=== PATIENT | female | born 1975 | race African-American/Black ===

== ENCOUNTER 2020-06-12 15:45 | Emergency (ER) | payer SELFPAY ==
[~2020-06-12] VITALS: Ht 175.3 cm; Wt 63.0 kg
[2020-06-12] MEDS ORDERED: KETOROLAC 30 MG/ML VIAL. IM ONE (19:00)
[2020-06-12] MEDS ORDERED: diazePAM 5 MG TABLET PO ONE (19:00)
[2020-06-12 19:08] LABS: BILIRUBIN,URINE NEGATIVE (NEG); CLARITY,URINE CLEAR; COLOR,URINE YELLOW; NITRITE,URINE NEGATIVE (NEG); PROTEIN,URINE NEGATIVE (NEG-TRACE)
[2020-06-12 19:17] LABS: BACTERIA,URINE FEW /HPF (0-FEW); RBC,URINE 0 /HPF (0-2)
[2020-06-12] MEDS ORDERED: CYCL10TA2 PO (20:04)
[2020-06-12] MEDS ORDERED: CEPH-264 PO (20:04)
[2020-06-12] MEDS ORDERED: NAPR-514 PO (20:04)
--- NOTE | 2020-06-12 20:04 | PHYS DOC ---
Past Medical History Past Medical History: Asthma, Other Additional Past Medical Histor: RA Past Surgical History: No Surgical History Smoking Status: Never Smoker Alcohol Use: Occasionally General Adult EDM: Chief Complaint: BACK PAIN - NO INJURY HPI: HPI: Patient is a 44 year old presents to the emergency department with complaints of low back and bilateral hip pain for the last 3 weeks that has gradually increased in intensity. She reports a history of rheumatoid arthritis in her hips that often causes her back pain. Patient reports that today the pain is most severe in her right low back. She denies any loss of bowel or bladder control or saddle anesthesia. She denies any increased urinary frequency, hematuria, dysuria, nausea, vomiting, diarrhea, or abdominal pain she denies any numbness, tingling, or weakness of her lower extremities. She currently rates her pain a 10 out of 10 on pain scale she denies rating factors, the pain is worse with movement. Review of Systems: Review of Systems: Complete ROS is negative unless otherwise noted in HPI. Heart Score: Risk Factors: Risk Factors: DM, Current or recent (<one month) smoker, HTN, HLP, family history of CAD, obesity. Risk Scores: Score 0 - 3: 2.5% MACE over next 6 weeks - Discharge Home Score 4 - 6: 20.3% MACE over next 6 weeks - Admit for Clinical Observation Score 7 - 10: 72.7% MACE over next 6 weeks - Early Invasive Strategies Current Medications: Current Medications Medications (Trade) Dose Ordered Sig/Nima Start Time Stop Time Status Last Admin Dose Admin Diazepam (Valium) 5 mg 1X ONCE 06/12/20 19:00 06/12/20 19:13 DC 06/12/20 19:43 5 MG Ketorolac Tromethamine (Toradol 30mg Vial) 30 mg 1X ONCE 06/12/20 19:00 06/12/20 19:13 DC 06/12/20 19:43 30 MG Allergies: Allergies: Allergies Coded Allergies Type Severity Reaction Last Updated Verified No Known Drug Allergies 06/12/20 No Physical Exam: PE: Constitutional: Well developed, well nourished, no acute distress, non-toxic appearance. [] HENT: Normocephalic, atraumatic, bilateral external ears normal, nose normal. [] Eyes: PERRLA, EOMI, conjunctiva normal, no discharge. [] Neck: Normal range of motion, no stridor. [] Cardiovascular:Heart rate regular rhythm Lungs & Thorax: Respirations even and unlabored, no retractions, no respiratory distress Back: No bony tenderness, no CVA tenderness, right lumbar paraspinal tenderness to palpation with positive straight leg lift on the right Skin: Warm, dry, no erythema, no rash. [] Extremities: No cyanosis, ROM intact, no edema. [] Neurologic: Alert and oriented X 3, no focal deficits noted. [] Psychologic: Affect normal, judgement normal, mood normal. [] Current Patient Data: Labs: Laboratory Tests Test 06/12/20 18:50 06/12/20 19:11 Urine Collection Type Unknown Urine Color Yellow Urine Clarity Clear Urine pH 6.0 (<5.0-8.0) Urine Specific [place] >=1.030 (1.000-1.030) Urine Protein Negative mg/dL (NEG-TRACE) Urine Glucose (UA) Negative mg/dL (NEG) Urine Ketones (Stick) 15 mg/dL (NEG) Urine Blood Negative (NEG) Urine Nitrite Negative (NEG) Urine Bilirubin Negative (NEG) Urine Urobilinogen Dipstick 1.0 mg/dL (0.2 mg/dL) Urine Leukocyte Esterase Small (NEG) Urine RBC 0 /HPF (0-2) Urine WBC 11-20 /HPF (0-4) Urine Squamous Epithelial Cells Mod /LPF Urine Bacteria Few /HPF (0-FEW) Urine Mucus Mod /LPF POC Urine HCG, Qualitative Hcg negative (Negative) EKG: EKG: [] Radiology/Procedures: Radiology/Procedures: [] Course & Med Decision Making: Course & Med Decision Making Pertinent Labs and Imaging studies reviewed. (See chart for details) 44-year-old female presented to the emergency department with complaints of low back pain that has increased in intensity over the last 3 weeks without any known injury. Urine negative, urinalysis is concerning for a urinary tract infection prescription written for Keflex. Patient was given 5 mg of p.o. Valium and 30 mg of IM Toradol in the emergency department, she reported feeling better after these medications. Physical exam is not concerning for acute fracture or cauda equina syndrome. Prescriptions written for Flexeril, naproxen, and Keflex. The patient was enc ouraged to follow-up with her primary care doctor in the next 1 to 2 days for repeat evaluation, return to the ER if symptoms worsen. Patient verbalized an understanding of home care, medications, follow-up, and return to ED instructions and was in agreement with the plan of care. [] Jose Luis Disclaimer: Dragnilsa Disclaimer: This electronic medical record was generated, in whole or in part, using a voice recognition dictation system. Departure Departure Impression: Primary Impression: UTI (urinary tract infection) Qualified Codes: N30.00 - Acute cystitis without hematuria Additional Impression: Right-sided low back pain with right-sided sciatica Qualified Codes: M54.41 - Lumbago with sciatica, right side Disposition: 01 DC HOME SELF CARE/HOMELESS Condition: STABLE Referrals: NO PCP (PCP) Patient Instructions: Sciatica, [id number], Urinary Tract Infection, [id number] Additional Instructions: Fill the prescription(s) and use as directed. Apply heat or ice for to sore areas as needed for comfort. Activity as tolerated. Follow up with your primary care doctor this week if symptoms persist, return to the ER if symptoms worsen. Scripts Cephalexin (KEFLEX) 500 Mg Capsule 500 MG PO BID for 7 Days, #14 CAP 0 Refills Prov: ANYANA CARO APRN 06/12/20 Naproxen (NAPROXEN) 500 Mg Tablet 1 TAB PO BID PRN for PAIN for 10 Days, #20 TAB 0 Refills Prov: NAYANA CARO APRN 06/12/20 Cyclobenzaprine Hcl (CYCLOBENZAPRINE HCL) 10 Mg Tablet 1 TAB PO TID PRN for MUSCLE PAIN for 10 Days, #30 TAB 0 Refills Prov: NAYANA CARO APRN 06/12/20 NAYANA CARO APRN Jun 12, 2020 20:04
== END 2020-06-12 20:15 | disposition home or self-care (01) ==
LOC: ER 15:45
DX: N30.00 Acute cystitis without hematuria (principal); M54.41 Lumbago with sciatica, right side; M25.551 Pain in right hip; M25.552 Pain in left hip; J45.909 Unspecified asthma, uncomplicated
CPT/HCPCS: 81001; 81025; 87086; 96372; 99283; J1885

== ENCOUNTER 2020-07-01 03:01 | Emergency (ER) | payer SELFPAY ==
[~2020-07-01] VITALS: Ht 175.3 cm; Wt 63.6 kg
[~2020-07-01 03:01] MED LIST: CEPH-264 PO; CYCL10TA2 PO; NAPR-514 PO
[2020-07-01] MEDS ORDERED: IPRATRPIUM/ALBUTEROL 0.5/2.5MG 3 ML NEBU. NEB ONE (03:30)
[2020-07-01] MEDS ORDERED: MAGNESIUM SULFATE 2GM 50 ML IV ONE (03:30)
[2020-07-01] MEDS ORDERED: methylPREDNISolone SOD SUCC PF 125 MG/2 ML VIAL. IV ONE (03:30)
[2020-07-01] MEDS ORDERED: TERBUTALINE 1 MG/ML VIAL. SQ ONE (03:30)
[2020-07-01 03:38] LABS: BASO # 0.1 x10^3/uL (0.0-0.2); BASO % 1 % (0-3); EOS # 0.7 x10^3/uL (0.0-0.7); EOS % 8 % (0-3); HEMATOCRIT 36.5 % (36.0-47.0); HEMOGLOBIN 12.3 g/dL (12.0-15.5); LYMPH # 3.4 x10^3/uL (1.0-4.8); LYMPH % 38 % (24-48); MEAN CORPUSCULAR HEMOGLOBIN 31 pg (25-35); MEAN CORPUSCULAR HGB CONC 34 g/dL (31-37); MEAN CORPUSCULAR VOLUME 93 fL (79-100); MONO # 0.7 x10^3/uL (0.0-1.1); MONO % 8 % (0-9); NEUT # 3.9 x10^3/uL (1.8-7.7); NEUT % 44 % (31-73); PLATELET COUNT 335 x10^3/uL (140-400); RED BLOOD COUNT 3.92 x10^6/uL (3.50-5.40); RED CELL DISTRIBUTION WIDTH 12.7 % (11.5-14.5); WHITE BLOOD COUNT 8.7 x10^3/uL (4.0-11.0)
[2020-07-01 03:44] LABS: CALCIUM 9.1 mg/dL (8.5-10.1); CREATININE 0.7 mg/dL (0.6-1.0)
[2020-07-01 03:51] LABS: ALBUMIN 3.8 g/dL (3.4-5.0); ALBUMIN/GLOBULIN RATIO 0.8 (1.0-1.7); MAGNESIUM 2.1 mg/dL (1.8-2.4); TOTAL BILIRUBIN 0.2 mg/dL (0.2-1.0); TOTAL PROTEIN 8.3 g/dL (6.4-8.2)
--- NOTE | 2020-07-01 04:48 | PHYS DOC ---
Past Medical History Past Medical History: Asthma, Other Additional Past Medical Histor: RA Past Surgical History: No Surgical History Smoking Status: Never Smoker Alcohol Use: Occasionally General Adult EDM: Chief Complaint: ASTHMA HPI: HPI: Patient is a 44 year old female who presented to ER for evaluation of wheezing and trouble breathing. Patient says she ran out of her albuterol inhaler at home, she had not had her medication for a month. Patient denies any fever, no sick contact recently. Patient denies any abdominal pain, no nausea vomiting, no chest pain. Review of Systems: Review of Systems: Constitutional: Denies fever or chills. [] Eyes: Denies change in visual acuity. [] HENT: Denies nasal congestion or sore throat. [] Respiratory: Denies cough or shortness of breath. [] Cardiovascular: Denies chest pain or edema. [] GI: Denies abdominal pain, nausea, vomiting, bloody stools or diarrhea. [] : Denies dysuria. [] Musculoskeletal: Denies back pain or joint pain. [] Integument: Denies rash. [] Neurologic: Denies headache, focal weakness or sensory changes. [] Endocrine: Denies polyuria or polydipsia. [] Lymphatic: Denies swollen glands. [] Psychiatric: Denies depression or anxiety. [] Heart Score: Risk Factors: Risk Factors: DM, Current or recent (<one month) smoker, HTN, HLP, family history of CAD, obesity. Risk Scores: Score 0 - 3: 2.5% MACE over next 6 weeks - Discharge Home Score 4 - 6: 20.3% MACE over next 6 weeks - Admit for Clinical Observation Score 7 - 10: 72.7% MACE over next 6 weeks - Early Invasive Strategies Current Medications: Current Medications Medications (Trade) Dose Ordered Sig/Nima Start Time Stop Time Status Last Admin Dose Admin Albuterol/ Ipratropium (Duoneb) 3 ml 1X ONCE 07/01/20 03:30 07/01/20 03:31 DC 07/01/20 03:22 3 ML Magnesium Sulfate 50 ml @ 25 mls/hr 1X ONCE 07/01/20 03:30 07/01/20 05:29 07/01/20 03:33 25 MLS/HR Methylprednisolone Sodium Succinate (SOLU-Medrol 125MG VIAL) 125 mg 1X ONCE 07/01/20 03:30 07/01/20 03:31 DC 07/01/20 03:25 125 MG Terbutaline Sulfate (Brethine) 0.25 mg 1X ONCE 07/01/20 03:30 07/01/20 03:31 DC 07/01/20 03:26 0.25 MG Allergies: Allergies: Allergies Coded Allergies Type Severity Reaction Last Updated Verified No Known Drug Allergies 06/12/20 No Physical Exam: PE: Constitutional: Well developed, well nourished, no acute distress, non-toxic appearance. [] HENT: Normocephalic, atraumatic, bilateral external ears normal, oropharynx moist, no oral exudates, nose normal. [] Eyes: PERRLA, EOMI, conjunctiva normal, no discharge. [] Neck: Normal range of motion, no tenderness, supple, no stridor. [] Cardiovascular:Heart rate regular rhythm, no murmur [] Lungs & Thorax: Bilateral breath sounds with wheezing expiratory and inspiratory. Abdomen: Bowel sounds normal, soft, no tenderness, no masses, no pulsatile masses. [] Skin: Warm, dry, no erythema, no rash. [] Back: No tenderness, no CVA tenderness. [] Extremities: No tenderness, no cyanosis, no clubbing, ROM intact, no edema. [] Neurologic: Alert and oriented X 3, normal motor function, normal sensory function, no focal deficits noted. [] Psychologic: Affect normal, judgement normal, mood normal. [] Current Patient Data: Labs: Laboratory Tests Test 07/01/20 03:25 White Blood Count 8.7 x10^3/uL (4.0-11.0) Red Blood Count 3.92 x10^6/uL (3.50-5.40) Hemoglobin 12.3 g/dL (12.0-15.5) Hematocrit 36.5 % (36.0-47.0) Mean Corpuscular Volume 93 fL (79-100) Mean Corpuscular Hemoglobin 31 pg (25-35) Mean Corpuscular Hemoglobin Concent 34 g/dL (31-37) Red Cell Distribution Width 12.7 % (11.5-14.5) Platelet Count 335 x10^3/uL (140-400) Neutrophils (%) (Auto) 44 % (31-73) Lymphocytes (%) (Auto) 38 % (24-48) Monocytes (%) (Auto) 8 % (0-9) Eosinophils (%) (Auto) 8 % (0-3) H Basophils (%) (Auto) 1 % (0-3) Neutrophils # (Auto) 3.9 x10^3/uL (1.8-7.7) Lymphocytes # (Auto) 3.4 x10^3/uL (1.0-4.8) Monocytes # (Auto) 0.7 x10^3/uL (0.0-1.1) Eosinophils # (Auto) 0.7 x10^3/uL (0.0-0.7) Basophils # (Auto) 0.1 x10^3/uL (0.0-0.2) Sodium Level 140 mmol/L (136-145) Potassium Level 4.0 mmol/L (3.5-5.1) Chloride Level 101 mmol/L (98-107) Carbon Dioxide Level 30 mmol/L (21-32) Anion Gap 9 (6-14) Blood Urea Nitrogen 23 mg/dL (7-20) H Creatinine 0.7 mg/dL (0.6-1.0) Estimated GFR (Cockcroft-Gault) 109.0 BUN/Creatinine Ratio 33 (6-20) H Glucose Level 106 mg/dL (70-99) H Calcium Level 9.1 mg/dL (8.5-10.1) Magnesium Level 2.1 mg/dL (1.8-2.4) Total Bilirubin 0.2 mg/dL (0.2-1.0) Aspartate Amino Transferase (AST) 25 U/L (15-37) Alanine Aminotransferase (ALT) 31 U/L (14-59) Alkaline Phosphatase 58 U/L (46-116) Total Protein 8.3 g/dL (6.4-8.2) H Albumin 3.8 g/dL (3.4-5.0) Albumin/Globulin Ratio 0.8 (1.0-1.7) L Laboratory Tests 07/01/20 03:25 Laboratory Tests 07/01/20 03:25 Vital Signs: Vital Signs Date Time Temp Pulse Resp B/P (MAP) Pulse Ox O2 Delivery O2 Flow Rate FiO2 07/01/20 03:26 92 228/98 11/5/20 03:15 100 Nasal Cannula 3.0 07/01/20 03:01 97.9 26 97.9 EKG: EKG: [] Radiology/Procedures: Radiology/Procedures: [][facility] [address] [place] [address] IMAGING REPORT Signed PATIENT: KEV SALCIDO ACCOUNT: [id number] : 1975 LOCATION: ER AGE: 44 SEX: F EXAM STATUS: REG ER ORD. PHYSICIAN: JORGE LOBO DO REASON: soa PROCEDURE: CHEST AP ONLY EXAM: CHEST ONE VIEW. HISTORY: Shortness of breath. COMPARISON: None. FINDINGS: A frontal view of the chest is obtained. There are no confluent infiltrates. There is no pneumothorax or pleural effusion. The heart is not enlarged. IMPRESSION: 1. No confluent infiltrates. Electronically signed by: Brad Obando MD (07/01/2020 4:47 AM) [facility] DICTATED and SIGNED BY: ANASTASIIA OBANDO MD DATE: 07/01/20 0447 Course & Med Decision Making: Course & Med Decision Making Pertinent Labs and Imaging studies reviewed. (See chart for details) Patient is a 44-year-old female who has history of asthma presented to ER today due to trouble breathing. Patient says she had not had her asthma medication for a month. Patient denies any fever or any chest pain. Patient was given medication treatment in the ER, she feels much better. Patient will be discharged home, she will be given prescription for prednisone and albuterol inhaler. Patient will need to follow-up with her physician this week for reevaluation. Patient IS amendable to plan of care. Dragon Disclaimer: Dragon Disclaimer: This electronic medical record was generated, in whole or in part, using a voice recognition dictation system. Departure Departure Impression: Primary Impression: Asthma attack Disposition: 01 DC HOME SELF CARE/HOMELESS Condition: IMPROVED Referrals: NO PCP (PCP) PLEASE CALL YOUR FAMILY DOCTOR FOR FOLLOW UP THIS WEEK. Patient Instructions: Asthma Attacks, Prevention, Asthma, Adult Additional Instructions: Thank you for visiting our Emergency Department. We appreciate you trusting us with your care. If any additional problems come up don't hesitate to return to visit us. Please follow up with your primary care provider so they can plan additional care if needed and know about the problem that you had. If symptoms worsen come back to the Emergency Department. Any concerning symptoms that start such as chest pain, shortness of air, weakness or numbness on one side of the body, running high fevers or any other concerning symptoms return to the ER. Scripts Prednisone (PREDNISONE) 20 Mg Tablet 1 TAB PO DAILY for 10 Days, #10 TAB Prov: JORGE LOBO DO 07/01/20 Albuterol Sulfate (PROAIR HFA INHALER) 8.5 Gm Hfa.aer.ad 1 PUFF INH PRN Q6HRS PRN for SHORTNESS OF BREATH for 30 Days, #1 INHALER 1 Refill Prov: JORGE LOBO DO 07/01/20 JORGE LOBO DO Jul 01, 2020 04:48
[2020-07-01 05:08] VITALS: BP 195/89
[2020-07-01] MEDS ORDERED: ALBU2.5V8 INH (05:22)
[2020-07-01] MEDS ORDERED: PRED20TA PO (05:22)
== END 2020-07-01 05:45 | disposition home or self-care (01) ==
LOC: ER 03:01
DX: J45.909 Unspecified asthma, uncomplicated (principal)
CPT/HCPCS: 36415; 71045; 80053; 83735; 85025; 93005; 94640; 96365; 96366; 96372; 96375; 99285; J2930; J3105; J3475

== ENCOUNTER 2020-07-13 04:06 | Emergency (ER) | payer SELFPAY ==
[~2020-07-13] VITALS: Ht 165.1 cm; Wt 63.6 kg
[~2020-07-13 04:06] MED LIST changes: +ALBU2.5V8 INH; +PRED20TA PO
[2020-07-13] MEDS ORDERED: predniSONE 20 MG TABLET PO ONE (04:45)
[2020-07-13] MEDS ORDERED: IPRATRPIUM/ALBUTEROL 0.5/2.5MG 3 ML NEBU. NEB ONE (04:45)
--- NOTE | 2020-07-13 05:23 | RAD ---
CHEST AP ONLY Clinical History: Reason: SOA / Spl. Instructions: / History: Technique: AP view of the chest was obtained at 07/13/2020 4:41 AM. Comparison: July 01, 2020. Findings: The cardiomediastinal silhouette is normal. The pulmonary vasculature is normal. The lungs and pleural margins are clear. Impression: No evidence of an acute cardiopulmonary process. Electronically signed by: Francois Wilson III, MD (07/13/2020 5:20 AM) [facility]
--- NOTE | 2020-07-13 05:28 | PHYS DOC ---
Past Medical History Past Medical History: Asthma, Other Additional Past Medical Histor: RA Past Surgical History: No Surgical History Smoking Status: Never Smoker Alcohol Use: Occasionally General Adult EDM: Chief Complaint: ASTHMA HPI: HPI: Patient is a 44 year old female with history of asthma, presented to ER for evaluation of nonproductive cough and trouble breathing for several days. Patient ran out of her asthma medication. Patient denies any fever. Patient denies any abdominal pain, no nausea vomiting. Patient denies any chest pain. Review of Systems: Review of Systems: Constitutional: Denies fever or chills. [] Eyes: Denies change in visual acuity. [] HENT: Denies nasal congestion or sore throat. [] Respiratory: Positive for cough or shortness of breath. [] Cardiovascular: Denies chest pain or edema. [] GI: Denies abdominal pain, nausea, vomiting, bloody stools or diarrhea. [] : Denies dysuria. [] Musculoskeletal: Denies back pain or joint pain. [] Integument: Denies rash. [] Neurologic: Denies headache, focal weakness or sensory changes. [] Endocrine: Denies polyuria or polydipsia. [] Lymphatic: Denies swollen glands. [] Psychiatric: Denies depression or anxiety. [] Heart Score: Risk Factors: Risk Factors: DM, Current or recent (<one month) smoker, HTN, HLP, family history of CAD, obesity. Risk Scores: Score 0 - 3: 2.5% MACE over next 6 weeks - Discharge Home Score 4 - 6: 20.3% MACE over next 6 weeks - Admit for Clinical Observation Score 7 - 10: 72.7% MACE over next 6 weeks - Early Invasive Strategies Current Medications: Current Medications Medications (Trade) Dose Ordered Sig/Nima Start Time Stop Time Status Last Admin Dose Admin Albuterol/ Ipratropium (Duoneb) 3 ml 1X ONCE 07/13/20 04:45 07/13/20 04:46 DC 07/13/20 05:25 3 ML Prednisone (Prednisone) 60 mg 1X ONCE 07/13/20 04:45 07/13/20 04:46 DC 07/13/20 05:19 60 MG Allergies: Allergies: Allergies Coded Allergies Type Severity Reaction Last Updated Verified No Known Drug Allergies 06/12/20 No Physical Exam: PE: Constitutional: Well developed, well nourished, no acute distress, non-toxic appearance. [] HENT: Normocephalic, atraumatic, bilateral external ears normal, oropharynx moist, no oral exudates, nose normal. [] Eyes: PERRLA, EOMI, conjunctiva normal, no discharge. [] Neck: Normal range of motion, no tenderness, supple, no stridor. [] Cardiovascular:Heart rate regular rhythm, no murmur [] Lungs & Thorax: Bilateral breath sounds was expiratory wheezing to auscultation. No respiratory distress. Abdomen: Bowel sounds normal, soft, no tenderness, no masses, no pulsatile masses. [] Skin: Warm, dry, no erythema, no rash. [] Back: No tenderness, no CVA tenderness. [] Extremities: No tenderness, no cyanosis, no clubbing, ROM intact, no edema. [] Neurologic: Alert and oriented X 3, normal motor function, normal sensory function, no focal deficits noted. [] Psychologic: Affect normal, judgement normal, mood normal. [] EKG: EKG: [] Radiology/Procedures: Radiology/Procedures: [facility] [address] [place] [address] IMAGING REPORT Signed PATIENT: KEV SALCIDO ACCOUNT: [id number] : 1975 LOCATION: ER AGE: 44 SEX: F EXAM STATUS: REG ER ORD. PHYSICIAN: JORGE LOBO DO REASON: SOA PROCEDURE: CHEST AP ONLY CHEST AP ONLY Clinical History: Reason: SOA / Spl. Instructions: / History: Technique: AP view of the chest was obtained at 07/13/2020 4:41 AM. Comparison: July 01, 2020. Findings: The cardiomediastinal silhouette is normal. The pulmonary vasculature is normal. The lungs and pleural margins are clear. Impression: No evidence of an acute cardiopulmonary process. Electronically signed by: Arturo Johnson III, MD (07/13/2020 5:20 AM) [facility] DICTATED and SIGNED BY: ARTURO JOHNSON III, MD DATE: 07/13/20519 Course & Med Decision Making: Course & Med Decision Making Pertinent Labs and Imaging studies reviewed. (See chart for details) [] Dragon Disclaimer: Jose Luis Disclaimer: This electronic medical record was generated, in whole or in part, using a voice recognition dictation system. Departure Departure Impression: Primary Impression: Asthmatic bronchitis Disposition: 01 DC HOME SELF CARE/HOMELESS Condition: STABLE Referrals: NO PCP (PCP) Patient Instructions: Asthma, Adult Additional Instructions: [facility] [address] [place] [address] [facility] [address] [place] [address] [facility] [address] [facility] [place] [address] [facility] [address] [place] [address] [facility] [address] [place] [address] [facility] [address] [place] [address] [facility] [address] [place] [address] [facility] [address] [place] [address] [facility] [address] [place] [address] [facility] [address] [place] [address] Scripts Albuterol Sulfate (PROAIR HFA INHALER) 8.5 Gm Hfa.aer.ad 1 PUFF INH PRN Q6HRS PRN for SHORTNESS OF BREATH for 30 Days, #1 INHALER 3 Refills Prov: JORGE LOBO DO 07/13/20 Prednisone (PREDNISONE) 20 Mg Tablet 1 TAB PO DAILY for 10 Days, #10 TAB Prov: JORGE LOBO DO 07/13/20 JORGE LOBO DO Jul 13, 2020 05:28
[2020-07-13] MEDS ORDERED: PRED20TA PO (05:53)
[2020-07-13] MEDS ORDERED: ALBU2.5V8 INH (05:53)
[2020-07-13 06:15] VITALS: BP 162/81
== END 2020-07-13 06:32 | disposition home or self-care (01) ==
LOC: ER 04:06
DX: J45.909 Unspecified asthma, uncomplicated (principal); R06.02 Shortness of breath; R05 Cough
CPT/HCPCS: 71045; 94640; 99285; J7512

== ENCOUNTER 2020-07-25 14:28 | Emergency (ER) | payer SELFPAY ==
[~2020-07-25] VITALS: Ht 175.3 cm; Wt 65.0 kg
[2020-07-25] MEDS ORDERED: IPRATRPIUM/ALBUTEROL 0.5/2.5MG 3 ML NEBU. NEB ONE ×3 (14:45)
[2020-07-25] MEDS ORDERED: DEXAMETHASONE SOD PHOS 20 MG/5 ML VIAL. IV ONE (15:00)
--- NOTE | 2020-07-25 15:59 | RAD ---
PORTABLE CHEST 1V Clinical indications: Reason: Shortness of air COMPARISON: July 13, 2020. Findings: Old granulomatous disease is evident. No acute lung infiltrate or pleural effusion or pulmonary edema or lung mass or pneumothorax is seen. The heart size, pulmonary vasculature, mediastinum and both ruddy are unremarkable. Impression: No acute radiographic abnormality is seen. Electronically signed by: Albert Saleem MD (07/25/2020 3:56 PM) [id number]
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
[2020-07-25 17:01] VITALS: BP 163/109
[2020-07-25] MEDS ORDERED: VENTOLIN HFA18 GM INH (17:13)
[2020-07-25] MEDS ORDERED: FLUT10.6 IH (17:13)
[2020-07-25] MEDS ORDERED: PRED20TA PO (17:13)
== END 2020-07-25 17:23 | disposition home or self-care (01) ==
LOC: ER 14:28
DX: J45.909 Unspecified asthma, uncomplicated (principal); G43.909 Migraine, unspecified, not intractable, without status migrainosus; Z59.0 Homelessness
CPT/HCPCS: 71045; 94640; 94660; 96374; 99285; J1100

== ENCOUNTER 2020-08-11 15:52 | Emergency (ER) | payer SELFPAY ==
[~2020-08-11] VITALS: Ht 175.3 cm; Wt 64.0 kg
[~2020-08-11 15:52] MED LIST changes: +FLUT10.6 IH; +VENTOLIN HFA18 GM INH
[2020-08-11 18:12] VITALS: BP 150/95
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
[2020-08-11] MEDS ORDERED: DEXAMETHASONE 4 MG TABLET PO ONE (18:30)
[2020-08-11] MEDS ORDERED: ALBUTEROL SULFATE 2.5 MG/3 ML NEBU. NEB ONE (18:30)
--- NOTE | 2020-08-11 19:17 | RAD ---
Study: XR CHEST 1V Indication: Shortness of air. Asthma. Comparison: 07/25/2020 Findings: Unchanged cardiomediastinal silhouette and ruddy. No newly seen focal airspace opacity. No layering ef fusion or pneumothorax. Impression: No acute radiographic abnormality of the chest. Electronically signed by: ISAMAR DEWITT MD (08/11/2020 7:14 PM) [facility]
--- NOTE | 2020-08-11 19:20 | RAD ---
EXAM: 1. FRONTAL PELVIS WITH TWO-VIEW RIGHT HIP. 2. RIGHT ANKLE 3 VIEWS. 3. RIGHT FOOT 3 VIEWS. HISTORY: Pain after injury. COMPARISON: None. FINDINGS: No fractures are identified within the pelvis or either proximal femur. The joint spaces of both hips are maintained. There is a tiny os acetabulum on the left. There is mildly decreased femor al head/neck offset anteriorly on the right. No fractures are identified about the ankle. The alignment of the mortise is maintained. Joint spaces are maintained. No fractures are identified in the foot. There is mild hallux valgus. First metatarsophalangeal osteo arthritis is mild. There is a small posterior calcaneal spur. IMPRESSION: 1. No fracture. 2. Hallux valgus with mild first metatarsophalangeal osteoarthritis. Electronically signed by: Brad Obando MD (08/11/2020 7:17 PM) [facility]
[2020-08-11] MEDS ORDERED: METH4TAB2 PO (19:28)
[2020-08-11] MEDS ORDERED: ACET500T68 PO (19:28)
[2020-08-11] MEDS ORDERED: ALBU2.5V8 INH (19:28)
== END 2020-08-11 20:00 | disposition home or self-care (01) ==
LOC: ER 15:52
DX: J45.31 Mild persistent asthma with (acute) exacerbation (principal); M77.31 Calcaneal spur, right foot; M20.11 Hallux valgus (acquired), right foot; M19.071 Primary osteoarthritis, right ankle and foot; M25.551 Pain in right hip; G43.909 Migraine, unspecified, not intractable, without status migrainosus
CPT/HCPCS: 71045; 73502; 73610; 73630; 94640; 99284; J7613

== ENCOUNTER 2021-08-18 05:21 | Emergency (ER) | payer SELFPAY ==
[~2021-08-18] VITALS: Ht 177.8 cm; Wt 70.0 kg
[~2021-08-18 05:21] MED LIST changes: +ACET500T68 PO; +CYCL10TA19 PO; -CYCL10TA2 PO; +METH4TAB2 PO
[2021-08-18] MEDS ORDERED: IPRATRPIUM/ALBUTEROL 0.5/2.5MG 3 ML NEBU. NEB ONE (05:30)
[2021-08-18] MEDS ORDERED: diphenhydrAMINE HCL 25 MG CAPSULE PO ONE (05:30)
[2021-08-18] MEDS ORDERED: VENTOLIN HFA18 GM INH (05:31)
--- NOTE | 2021-08-18 05:36 | PHYS DOC ---
Past Medical History Past Medical History: Asthma, Migraines, Other Additional Past Medical Histor: RA, "Ulcers" Past Surgical History: No Surgical History Smoking Status: Never Smoker Alcohol Use: Occasionally General Adult EDM: Chief Complaint: ASTHMA HPI: HPI: 45-year-old female past medical history of asthma, presents to the ED brought by EMS with complaints of sudden onset shortness of breath with coughing, rhinorrhea and now itchy scratchy throat after patient was cooking pork chops. Patient states she inhaled tomato basil prior to the exacerbation of her symptoms, which felt like her typical asthma. Was given 1 DuoNeb treatment by EMS prior to ED arrival with full resolution of symptoms. Reports she accidentally packed up her albuterol inhaler in storage. States her asthma is well controlled with no recent hospitalizations. No history of Covid. Is not vaccinated for Covid. [place] well prior to inhaling fumes from cocaine. Review of Systems: Review of Systems: Constitutional: Denies fever or chills. [] Eyes: Denies change in visual acuity. [] HENT: Denies nasal congestion or sore throat. [] Respiratory: Denies hemoptysis or nasal flaring Cardiovascular: Denies chest pain or edema. [] GI: Denies nausea or vomiting Musculoskeletal: Denies back pain or joint pain. [] Integument: Denies rash or diaphoresis Neurologic: Denies headache, focal weakness or sensory changes. [] Endocrine: Denies polyuria or polydipsia. [] Lymphatic: Denies swollen glands. [] Psychiatric: Denies depression or anxiety. [] Heart Score: C/O Chest Pain: No Risk Factors: Risk Factors: DM, Current or recent (<one month) smoker, HTN, HLP, family history of CAD, obesity. Risk Scores: Score 0 - 3: 2.5% MACE over next 6 weeks - Discharge Home Score 4 - 6: 20.3% MACE over next 6 weeks - Admit for Clinical Observation Score 7 - 10: 72.7% MACE over next 6 weeks - Early Invasive Strategies Current Medications: Current Medications Medications (Trade) Dose Ordered Sig/Nima Start Time Stop Time Status Last Admin Dose Admin Albuterol/ Ipratropium (Duoneb) 6 ml 1X ONCE 08/18/21 05:30 08/18/21 05:31 Allergies: Allergies: Allergies Coded Allergies Type Severity Reaction Last Updated Verified No Known Drug Allergies 06/12/20 No Physical Exam: PE: Constitutional: Well developed, well nourished, no acute distress, non-toxic appearance. HENT: Normocephalic, atraumatic, Eyes: EOMI, conjunctiva normal, no discharge. Neck: Normal range of motion, supple, Cardiovascular: S1/2 present, regular rhythm Lungs & Thorax: Speaking in full sentences, bilateral equal chest rise, no tachypnea or increased work of breathing, very faint wheeze in left lung base, no crackles/rales Abdomen: soft, no tenderness, Skin: Warm, dry, no erythema, no rash. [] Extremities: No tenderness, no cyanosis, no lower extremity edema Neurologic: Alert and oriented X 3, normal motor function, normal sensory function, no focal deficits noted. [] Psychologic: Affect normal, judgement normal, mood normal. [] EKG: EKG: [] Radiology/Procedures: Radiology/Procedures: [] Course & Med Decision Making: Course & Med Decision Making Pertinent Labs and Imaging studies reviewed. (See chart for details) Concern for brief flareup of asthma with no rescue inhaler present. Patient with full resolution of symptoms after DuoNeb treatment by EMS. Was asymptomatic emergency department. Does report a mild scratchy throat and requests Benadryl. Patient with no fever, urticaria, head or neck swelling or pharyngeal exudates. Will prescribe Ventolin inhaler. Will discharge home with strict ED return precautions were given for increased work of breathing, fever or shortness of breath. Encouraged urgent outpatient follow-up with PMD for routine care and pulmonology for definitive management of asthma. Life- threatening processes were considered but are low suspicion at this time, given history, physical exam and ED workup. Pt was educated on all prescription medications and adverse effects. All patient's questions were answered and pt was stable at time of discharge. Life/limb-threatening differential includes but is not limited to, ACS, dysrhythmia, pneumothorax or hemothorax, pulmonary embolus, pneumonia, bronchoconstriction, pulmonary edema, angioedema, epiglottitis, tracheitis, Hans's angina, RPA/CASE MANAGEMENT SPECIALIST, anaphylaxis, angioedema, cardiac tamponade or murmurs, pericarditis, myocarditis, poisoning or toxicity, sepsis or autoimmune/neurologic disease. I have spoken with the patient and/or caregivers. I explained the patient's condition, diagnoses and treatment plan based on the information available to me at this time. I have answered the patient and/or caregiver's questions and addressed any concerns. The patient and/or caregivers have a good understanding of patient's diagnosis, condition and treatment plan as can be expected at this point. Vital signs have been stable. Patient's condition is stable and appropriate for discharge from the emergency department. Patient will pursue further outpatient evaluation with primary care physician or other designated or consulting physician as outlined in the discharge instructions. The patient and/or caregivers are agreeable to this plan of care and follow-up instructions have been explained in detail. The patient and/or caregivers have received these instructions in written form and have expressed an understanding of the discharge instructions. The patient and/or caregivers are aware that any significant change of condition or worsening of symptoms should prompt immediate return to this or the closest emergency department or call to 911. Jose Luis Disclaimer: Jose Luis Disclaimer: This electronic medical record was generated, in whole or in part, using a voice recognition dictation system. Departure Departure Impression: Primary Impression: Mild asthma Disposition: 01 HOME / SELF CARE / HOMELESS Condition: STABLE Referrals: NO PCP (PCP) Follow-up with your primary care physician in 24 to 48 hours OR FOLLOW UP WITH FAMILY MEDICINE: [address] [place] [address] Patient Instructions: Asthma, Adult Additional Instructions: FOLLOW UP WITH PULMONOLOGY: FOR DEFINITIVE MANAGEMENT of asthma [facility] [address] [place] [address] EMERGENCY DEPARTMENT GENERAL DISCHARGE INSTRUCTIONS Thank you for coming to [facility] Emergency Department (ED) today and trusting us with you care. We trust that you had a positive experience in our Emergency Department. If you wish to speak to the department management, you may call the Director at [phone]. YOUR FOLLOW UP INSTRUCTIONS ARE FOLLOWS: 1. Do you have a private Doctor? If you do not have a private doctor, please ask for a resource list of physicians or clinics that may be able to assist you with f ollow up care. 2. The Emergency Physicain has interpreted your x-rays. The X-Ray specialist will also review them. If there is a change in the findings, you will be notified in 48 hours when at all possible. 3. A lab test or culture has been done, your results will be reviewed and you will be notified if you need a change in treatment. ADDITIONAL INSTRUCTIONS AND INFORMATION: 1. Your care today has been supervised by a physician who is specially trained in emergency care. Many problems require more than one evaluation for a complete diagnosis and treatment. We recommend that you schedule your follow up appointment as recommended to ensure complete treatment of you illness or injury. If you are unable to obtain follow up care and continue to have a problem, or if your condition worsens, we recommend that you return to the ED. 2. We are not able to safely determine your condition over the phone nor are we able to give sound medical advice over the phone. For these safety reasons, if you call for medical advice we will ask you to come to the ED for further evaluation. 3. If you have any questions regarding these discharge instructions please call the ED at [phone]. SAFETY INFORMATION: In the interest of safety, wellness, and injury prevention; we encourage you to wear your sealbelt, if you smoke; quite smoking, and we encourage family to use a protect gopal helmet for bicycling and other sporting events that present an increased risk for head injury. IF YOUR SYMPTOMS WORSEN OR NEW SYMPTOMS DEVELOP, OR YOU HAVE CONCERNS ABOUT YOUR CONDITION; OR IF YOUR CONDITION WORSENS WHILE YOU ARE WAITING FOR YOUR FOLLOW UP APPOINTMENT; EITHER CONTACT YOUR PRIMARY CARE DOCTOR, THE PHYSICIAN WHOSE NAME AND NUMBER YOU WERE GIVEN, OR RETURN TO THE ED IMMEDIATELY. Scripts Albuterol Sulfate (VENTOLIN HFA INHALER) 18 Gm Hfa.aer.ad 2 PUFF INH QID for FOR ASTHMA, #1 INHALER 0 Refills Prov: ELEONORA QUINTANA DO 08/18/21 ELEONORA QUINTANA DO Aug 18, 2021 05:36
[2021-08-18 05:40] VITALS: BP 149/75
== END 2021-08-18 05:44 | disposition home or self-care (01) ==
LOC: ER 05:21
DX: J45.909 Unspecified asthma, uncomplicated (principal); G43.909 Migraine, unspecified, not intractable, without status migrainosus
CPT/HCPCS: 99283; Q0163

== ENCOUNTER 2021-09-18 23:00 | Emergency (ER) | payer SELFPAY ==
[~2021-09-18] VITALS: Ht 175.3 cm; Wt 72.0 kg
[2021-09-18] MEDS ORDERED: DEXAMETHASONE SOD PHOS 4 MG/ML VIAL IM ONE (23:15)
--- NOTE | 2021-09-18 23:16 | PHYS DOC ---
Past Medical History Past Medical History: Arthritis (RA), Asthma, Migraines, Other (JOSEFA BENTLEY) Past Surgical History: No Surgical History (JOSEFA BENTLEY) Smoking Status: Never Smoker Alcohol Use: Occasionally (JOSEFA BENTLEY) General Adult EDM: Chief Complaint: ASTHMA HPI: HPI: Patient is a 45 year old female with history of asthma, migraines and RA who presents with asthma exacerbation that began yesterday. Patient states that she was visited by EMS twice last night and got DuoNeb treatments. She refused transport to the hospital. Tonight, she called again for DuoNeb treatment and agreed to present to emergency department for further treatment. She received 2 treatments en route and feels much better. Patient states that she has used her last albuterol inhaler and does not have any refills. She has no other complaints at this time. (JOSEFA BENTLEY) Review of Systems: Review of Systems: ROS negative or noncontributory except as mentioned in HPI. (JOSEFA BENTLEY) Heart Score: C/O Chest Pain: No (JOSEFA BENTLEY) Allergies: Allergies: Allergies Coded Allergies Type Severity Reaction Last Updated Verified No Known Drug Allergies 06/12/20 No (JOSEFA BENTLEY) Physical Exam: PE: Constitutional: Well developed, well nourished, no acute distress, non-toxic appearance. HENT: Normocephalic, atraumatic, bilateral external ears normal, nose normal. Eyes: EOMI, conjunctiva normal, no discharge. Neck: Normal range of motion, no stridor. Cardiovascular: Heart rate regular rhythm, no murmur. Lungs & Thorax: Bilateral breath sounds clear to auscultation. Skin: Warm, dry, no erythema, no rash, no cyanosis. Neurologic: Alert and oriented x4, no focal deficits noted. (JOSEFA BENTLEY) Current Patient Data: Vital Signs: Vital Signs Date Time Temp Pulse Resp B/P (MAP) Pulse Ox O2 Delivery O2 Flow Rate FiO2 09/18/21 23:03 97.8 98 16 162/100 (120) 96 Room Air 97.8 (JOSEFA BENTLEY) Course & Med Decision Making: Course & Med Decision Making Pertinent Labs and Imaging studies reviewed. (See chart for details) Patient is a 45-year-old female with history of asthma who presents with exacerbation. She is feeling much better after 2 DuoNeb treatments administered to her on the way into the department by EMS. She is requesting an albuterol refill as well as steroids for her exacerbation. Patient provided with dexamethasone IM and a prescription for albuterol inhaler. She was given return precautions. Patient understands and is agreeable to discharge plan (JOSEFA BENTLEY) Course & Med Decision Making Patients Care and treatment plan provided by ER Nurse Practitioner. I was available for consult. Patient's chart reviewed. (DUSTIN CORTEZ I DO) Dragon Disclaimer: Dragnilsa Disclaimer: This electronic medical record was generated, in whole or in part, using a voice recognition dictation system. (JOSEFA BENTLEY) Departure Departure Impression: Primary Impression: Asthma exacerbation Qualified Codes: J45.901 - Unspecified asthma with (acute) exacerbation Disposition: HOME / SELF CARE / HOMELESS Condition: IMPROVED Referrals: NO PCP (PCP) Patient Instructions: Asthma, Adult, [id number] Additional Instructions: EMERGENCY DEPARTMENT GENERAL DISCHARGE INSTRUCTIONS Thank you for coming to [facility] Emergency Department (ED) today and trusting us with you care. We trust that you had a positive experience in our Emergency Department. If you wish to speak to the department management, you may call the director at . YOUR FOLLOW UP INSTRUCTIONS ARE FOLLOWS: 1. Follow up with your primary care doctor. If you do not have a primary doctor, please ask for a resource list of physicians or clinics that may be able to assist you with follow up care. 2. The emergency provider has interpreted your imaging studies, if any were ordered. The radiology family specialist also reviewed them. If there is a change in the findings, you will be notified in 48 hours when at all possible. 3. If a lab test or culture has been done, your results will be reviewed and you will be notified if you need a change in treatment. 4. Follow instructions verbalized to you and refer to the printouts if needed. ADDITIONAL INSTRUCTIONS AND INFORMATION: 1. Your care today has been supervised by a physician who is specially trained in emergency care. Many problems require more than one evaluation for a complete diagnosis and treatment. We recommend that you schedule your follow up appointment as recommended to ensure complete treatment of you illness or injury. If you are unable to obtain follow up care and continue to have a problem, or if your condition worsens, we recommend that you return to the ED. 2. We are not able to safely determine your condition over the phone nor are we able to give sound medical advice over the phone. For these safety reasons, if you call for medical advice we will ask you to come to the ED for further evaluation. 3. If you have any questions regarding these discharge instructions please call the ED at . SAFETY INFORMATION: In the interest of safety, wellness, and injury prevention; we encourage you to wear your seat belt, if you smoke; quite smoking, and we encourage family to use a protective helmet for bicycling and other sporting events that present an increased risk for head injury. IF YOUR SYMPTOMS WORSEN OR NEW SYMPTOMS DEVELOP, OR YOU HAVE CONCERNS ABOUT YOUR CONDITION; OR IF YOUR CONDITION WORSENS WHILE YOU ARE WAITING FOR YOUR FOLLOW UP APPOINTMENT; EITHER CONTACT YOUR PRIMARY CARE DOCTOR, THE PHYSICIAN WHOSE NAME AND NUMBER YOU WERE GIVEN, OR RETURN TO THE ED IMMEDIATELY. Scripts Nebulizer and Compressor (Procare Compressor Nebulizer) 1 Each Each EACH MC, #1 Prov: JOSEFA BENTLEY 09/18/21 Prednisone (PREDNISONE) 50 Mg Tablet 1 TAB PO DAILY for 5 Days, #5 TAB Prov: JOSEFA BENTLEY 09/18/21 Ipratropium/Albuterol Sulfate (DUONEB 0.5-3(2.5) MG/3 ML) 3 Ml Ampul.neb 3 ML NEB QID, #10 EACH Prov: JOSEFA BENTLEY 09/18/21 Albuterol Sulfate (PROAIR HFA INHALER) 8.5 Gm Hfa.aer.ad 2 PUFF IH PRN Q4-6HRS PRN for wheezing for 21 Days, #1 INHALER 0 Refills Prov: JOSEFA BENTLEY 09/18/21 JOSEFA BENTLEY Sep 18, 2021 23:16 DUSTIN CORTEZ DO Sep 19, 2021 03:19
[2021-09-18] MEDS ORDERED: ALBU2.5V8 IH (23:32)
[2021-09-18] MEDS ORDERED: IPRA3AMP29 NEB (23:47)
[2021-09-18] MEDS ORDERED: PRED50TA PO (23:47)
[2021-09-18] MEDS ORDERED: [UNRECOGNIZED DRUG - CODE] MC (23:47)
[2021-09-18 23:54] VITALS: BP 148/80
== END 2021-09-18 23:57 | disposition home or self-care (01) ==
LOC: ER 23:00
DX: J45.901 Unspecified asthma with (acute) exacerbation (principal); G43.909 Migraine, unspecified, not intractable, without status migrainosus; M06.9 Rheumatoid arthritis, unspecified
CPT/HCPCS: 96372; 99283; J1100